=== PATIENT | female | born 1950 | race Caucasian/White ===

== ENCOUNTER → 2019-05-15 | Outpatient (CLI) | payer MEDICARE, OTHER, SELFPAY ==
[2019-05-14 16:58] VITALS: BMI 29.6
[2019-05-15 14:26] LABS: Bacteria 0 SEEN /hpf (None Seen); Mucous, Urine 0 SEEN /hpf (<or=2+); Red Blood Cells-Urine 0 SEEN /hpf (0-5); Squamous Epithelial Cells - UA 0 SEEN /hpf (5-10); White Blood Cells 0 SEEN /hpf (0-5)
[2019-05-15 14:30] LABS: Color, Urine Yellow (Yellow); Glucose, Dipstick Normal (Normal); Ketone-Dipstick 5 mg/dl (Negative); Leukocyte Esterase-Dipstick 25 /ul (Negative); Nitrite-Dipstick Negative (Negative); Occult Blood-Urine Negative /ul (Negative); Protein-Dipstick Negative (Negative); Specific Gravity, Urine 1.025 (1.002-1.030); Urine Bilirubin Dipstick Negative (Negative); Urine Clarity Clear (Clear); Urine Urobilinogen Normal (Normal)
[2019-05-15 14:38] LABS: Calcium Oxalate Crystals Ur 2+ /hpf (<or=2+)
== END | disposition home or self-care (01) ==
PROVIDERS: Referring Provider Physician Assistant Surgical; Visit Provider Physician Assistant Surgical
DX: N30.00 Acute cystitis without hematuria (principal)
CPT/HCPCS: 81001; 87086; 87088

== ENCOUNTER 2019-11-22 10:02 | Emergency (ER) | payer MEDICARE, OTHER, SELFPAY ==
[2019-05-14 16:58] VITALS: BMI 29.6
[2019-11-22 10:03] VITALS: BP 191/103; PULSE 81; RESP 18; TEMP 36.6; O2SAT 100; BMI 28.3
--- NOTE | 2019-11-22 10:14 | VDLE_ITS ---
Reason For Study: Swelling RIGHT LEFT CFV is compressible, spontaneous, phasic, GSV is normal. competent and demonstrates normal CFV is compressible, spontaneous, phasic, augmentation. competent, and demonstrates normal Procedure augmentation. Exam performed portable in ED. FV is compressible, spontaneous, phasic, A preliminary report was called and/or faxed competent and demonstrates normal to Stephan. augmentation. POP V is compressible, spontaneous, phasic, competent and demonstrates normal augmentation. T/P Trunk is compressible. PTV is compressible. LT PerV is compressible. Nonvascularized structure noted in the left mid calf muscle measuring approximently 0.71 x 1.34 x 1.51 cm. Interpretation Summary There is no evidence of left lower extremity deep vein thrombosis. Left great saphenous vein appears patent and compressible segmentally. Left mid calf muscle 0.71 x 1.34 x 1.51 cm non-vascularized structure. Clinical correlation would be appropriate. Patent and compressible right common femoral vein Ordering Physician: Shruthi Rothman Performed By: Minda Arellano RVT
--- NOTE | 2019-11-22 10:17 | ED.VISSUMM ---
- ER Visit Summary Date of Service: 11/22/19 Chief Complaint: [Pain and swelling to left leg] History of Present Illness: The patient is a 68 F [does the emergency department complaint of pain and swelling to her left leg. Patient states that she started initially on November 06 with severe pain while sleeping in the left calf that she attributed to a charley horse. Patient states that she was awoken a second time with severe pain in that leg. 5 days later she noted swelling and bruising to the left calf and ankle. Patient has not had any trauma. She denies recent travel or surgery. She is not on any blood thinners currently. No history of PE or DVT. She denies any chest pain or shortness of breath. Patient was seen in urgent care and referred to the ER to rule out DVT. Patient does have history of diabetes, hypertension, and high cholesterol. Patient states that she is able to do her daily activities without too much discomfort although she noticed increased swelling typically at night. Patient states she is able to walk her dog without difficulty.] Physical Examination: [HEENT-PERRLA, EOMI. Cranial nerves II through XII grossly intact. TMs clear. Mucous membranes moist. No adenopathy. Cardiovascular-regular rate and rhythm without murmur or ectopy Lungs-clear to auscultation, chest wall stable without crepitus or subcu emphysema Abdomen-normoactive bowel sounds, soft, nontender, no rebound or rigidity, no peritoneal signs. Extremities-intact ?4, normal range of motion, normal pulses. Left leg-patient does have some diffuse soft tissue swelling about the left calf. She got positive Homans sign. She got tenderness over the left calf. She has healing ecchymosis over the lateral aspect of the mid calf. Patient also has ecchymosis and bruising noted over the medial and lateral aspect of the heel. She has significant soft tissue swelling posterior to the lateral malleolus. She has normal pulses. Patient has normal range of motion of all digits. She has a negative Beebe's test. There is no defect palpated in the Achilles tendon. No significant tenderness on palpation of the Achilles tendon.] Test Results: [Venous duplex of the left lower extremity obtained which was negative for DVT. CBC with it was normal. Patient had normal platelet count.] Emergency Department Course and Treatment: [He was given an Azar wrap] Treatment Plan: [Patient advised to elevate the extremity. Tylenol for discomfort. Advised to follow-up with primary care physician in 5 to 7 days. Suspect patient likely had a small spontaneous hemorrhage or possibly even small calf tear causing hematoma and gravity pulling blood down towards the foot.] Disposition: [Discharged home in stable condition] Impression: [Left leg pain Hematoma] This note was generated with [employer] dictation software. It may contain incorrect words, spelling, and punctuation that were not noted in review of the chart prior to signing ED Disposition - Plan for ED Patient: Referrals: Care Physician,No Primary [Primary Care Provider] -
[2019-11-22 10:32] VITALS: BP 170/73
[2019-11-22 10:44] LABS: Absolute Lymphocyte Count 1.42 X10^3/uL (0.83-4.51); Absolute Neutrophil Count 2.5 X10^3/uL (2.0-7.7); Basophil# 0.03 X10^3/uL; Basophil% 0.7 % (0-1); Eosinophils% 2.2 % (0-5); Hemoglobin 14.8 g/dL (12.0-15.0); Lymphocyte # 1.42 X10^3/ul (4.0); Lymphocyte % 31.8 % (19-41); Mean Corp Hgb Conc 33.6 g/dL (32-36); Mean Corpuscular Hgb 30.1 pg (27.0-32.0); Mean Corpuscular Volume 89.4 fL (81-99); Mean Platelet Vol. 12.1 fl (6.2-12.0); Monocyte# 0.45 X10^3/uL; Monocyte% 10.1 % (0-10); NRBC Flagged by Analyzer 0 % (0-5); Neutrophil # 2.46 X10^3/uL (2.7-7.7); Neutrophil % 55.2 % (47-70); Platelet Count 156 K/mm3 (150-450); RBC Distribution Width CV 11.9 % (11.6-14.6); RBC Distribution Width SD 38.3 fl (35.1-43.9); Red Blood Count 4.92 M/mm3 (4.2-5.4); White Blood Count 4.5 K/mm3 (4.4-11.0)
--- NOTE | 2019-11-22 11:04 | ED.DEP ---
ED Disposition - Plan for ED Patient: Instructions: Hematoma Referrals: Care Physician,No Primary [Primary Care Provider] - 5-7 Days
[2019-11-22 11:26] VITALS: BP 137/58; PULSE 72; RESP 16; O2SAT 98
== END 2019-11-22 11:27 | disposition home or self-care (01) ==
PROVIDERS: Emergency Provider Emergency Medicine
DX: S80.12XA Contusion of left lower leg, initial encounter (principal); M79.605 Pain in left leg; X58.XXXA Exposure to other specified factors, initial encounter; Y93.9 Activity, unspecified; Y92.9 Unspecified place or not applicable; Y99.9 Unspecified external cause status; E11.9 Type 2 diabetes mellitus without complications; I10 Essential (primary) hypertension; E78.00 Pure hypercholesterolemia, unspecified; Z79.84 Long term (current) use of oral hypoglycemic drugs; Z79.899 Other long term (current) drug therapy
CPT/HCPCS: 85025; 93971; 99282